=== PATIENT | male | born 1965 | race African-American/Black ===

== ENCOUNTER 2019-03-28 11:53 | Emergency (ER) | payer BC ==
[~2019-03-28] VITALS: Ht 188 cm; Wt 122.0 kg
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
[2019-03-28 12:00] VITALS: BP 124/72
--- NOTE | 2019-03-28 12:09 | NUR ---
ED Nurse Note: Pt presents to ED from home, drove. Pt c/o chest pain and tightness with N and sweating for 1 hr while at work. Pt reports 6/10 chest pain at this time. Pt A&Ox4, VSS
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
[2019-03-28 13:20] LABS: BASOPHILS % (AUTO) 1.4 % (0.0-2.0); EOSINOPHILS % (AUTO) 2.2 % (0.0-3.0); HEMATOCRIT 46.5 % (42.0-52.0); LYMPHOCYTES % (AUTO) 35.5 % (20.0-45.0); MEAN CORPUSCULAR VOLUME 90 FL (80-99); PLATELET COUNT 296 K/UL (150-450); RED BLOOD COUNT 5.16 M/UL (4.70-6.10); RED CELL DISTRIBUTION WIDTH 12.3 % (11.6-14.8); WHITE BLOOD COUNT 6.1 K/UL (4.8-10.8)
[2019-03-28 13:28] LABS: ANION GAP 10 mmol/L (5-15); BLOOD UREA NITROGEN 19 mg/dL (7-18); CALCIUM 9.5 MG/DL (8.5-10.1); CARBON DIOXIDE 25 MMOL/L (21-32); CHLORIDE 102 MMOL/L (98-107); CREATININE 1.4 MG/DL (0.55-1.30); SODIUM 137 MMOL/L (136-145)
--- NOTE | 2019-03-28 13:32 | Diagnostic Imaging Report ---
Indication: Chest pain Comparison: None A single view chest radiograph was obtained. Findings: Cardiomediastinal appearance is within normal limits for age. The lungs are clear. Pulmonary vascularity is appropriate. The diaphragmatic contour is smooth and costophrenic angles are sharp. No pleural effusions are identified. The bones are unremarkable. Impression: No acute findings
[2019-03-28 13:43] LABS: ALANINE AMINOTRANSFERASE 49 U/L (12-78); ALBUMIN 4.4 G/DL (3.4-5.0); ALBUMIN/GLOBULIN RATIO 1.1 (1.0-2.7); ALKALINE PHOSPHATASE 80 U/L (46-116); ASPARTATE AMINO TRANSFERASE 30 U/L (15-37); BILIRUBIN,TOTAL 0.5 MG/DL (0.2-1.0); CKMB 5.8 NG/ML (0.0-3.6); CREATINE KINASE 639 U/L (26-308)
[2019-03-28 13:45] VITALS: BP 107/75
--- NOTE | 2019-03-28 15:27 | NUR ---
ED Nurse Note: Venipuncture performed via left hand using 23g for repeat labs. Patient tolerated the procedure without difficulty. Applied clean, dry dressing.
[2019-03-28 15:46] LABS: ANION GAP 10 mmol/L (5-15); BLOOD UREA NITROGEN 20 mg/dL (7-18); CALCIUM 9.1 MG/DL (8.5-10.1); CARBON DIOXIDE 25 MMOL/L (21-32); CHLORIDE 104 MMOL/L (98-107); CREATININE 1.3 MG/DL (0.55-1.30); POTASSIUM 3.9 MMOL/L (3.5-5.1); SODIUM 139 MMOL/L (136-145)
[2019-03-28 15:51] LABS: CREATINE KINASE 529 U/L (26-308)
[2019-03-28 17:04] VITALS: BP 112/68
--- NOTE | 2019-03-28 17:05 | NUR ---
ER DISCHARGE NOTE: Patient is cleared to be discharged per ERMD, pt is aox4, on room air, with stable vital signs. pt was given dc and prescription instructions, pt was able to verbalize understanding, pt id band and iv site removed without complications. pt is able to ambulate with steady gait. pt took all belongings.
--- NOTE | 2019-03-29 20:23 | Cardiology Report ---
APPROVED REPORT EKG Measurement Heart [id number] DC [id number] Normal sinus rhythm Nonspecific ST and T wave abnormality Abnormal ECG
--- NOTE | 2019-03-29 20:24 | Cardiology Report ---
APPROVED REPORT EKG Measurement Heart [id number] AL [id number] Normal sinus rhythm Nonspecific T wave abnormality Abnormal ECG
== END 2019-03-28 16:51 | disposition home or self-care (01) ==
LOC: EMR 12:56
DX: R07.9 Chest pain, unspecified (principal); R79.89 Other specified abnormal findings of blood chemistry
CPT/HCPCS: 36415; 71045; 80048; 80053; 82550; 82553; 84484; 85025; 93005; 96360; 99284